=== PATIENT | male | born 1985 | race Caucasian/White ===

== ENCOUNTER 2021-06-05 14:50 | Emergency (ER) | payer OTHER ==
[2021-06-05] MEDS ORDERED: Sodium Chloride 0.9% 10 ML Syringe FLUSH PRN (15:19)
[2021-06-05] MEDS ORDERED: fentaNYL 100 MCG/2 ML SDV IVPUSH ONE ×2 (15:19→16:24)
[2021-06-05] MEDS ORDERED: Ondansetron 4 MG/2 ML SDV IVPUSH ONE (15:19)
[2021-06-05] MEDS ORDERED: Sodium Chloride 0.9% 1,000 ML IV ONE (15:19)
--- NOTE | 2021-06-05 15:24 | EDM.PDOC ---
ED HPI GENERAL MEDICAL PROBLEM - General Chief Complaint: Abdominal Pain Stated Complaint: STOMACH PAIN Time Seen by Provider: 06/05/21 15:12 Source of Information: Reports: Patient - History of Present Illness INITIAL COMMENTS - FREE TEXT/NARRATIVE: Dennys is a 35 y/o male who comes to the ER with complaints of abdominal pain. He felt fine this AM when he got up, then about 1000 he started to have widespread abdominal pain along with nausea and vomiting. No diarrhea. He felt fine up until then. No meds taken. Rates the pain sharp and 9/10. Abdominal Pain Score (Numeric/FACES): 9 - Related Data Allergies Allergy/AdvReac Type Severity Reaction Status Date / Time No Known Allergies Allergy Verified 06/05/21 15:34 Review of Systems - Review of Systems Review Of Systems: See Below Constitutional: Reports: Chills Eyes: Reports: No Symptoms Ears: Reports: No Symptoms Nose: Reports: No Symptoms Mouth/Throat: Reports: No Symptoms Respiratory: Reports: No Symptoms Cardiovascular: Reports: No Symptoms GI/Abdominal: Reports: Abdominal Pain, Decreased Appetite, Nausea, Vomiting Genitourinary: Reports: No Symptoms Musculoskeletal: Reports: No Symptoms Skin: Reports: No Symptoms Neurological: Reports: No Symptoms Psychiatric: Reports: No Symptoms ED EXAM, GENERAL - Physical Exam Exam: See Below General Appearance: Alert, WD/WN, No Apparent Distress (Adult male, appears to not feel well.) Eye Exam: Bilateral Eye: PERRL Ears: Normal External Exam, Hearing Grossly Normal Nose: Normal Inspection Throat/Mouth: Normal Inspection, Normal Lips Head: Atraumatic, Normocephalic Neck: Supple Respiratory/Chest: No Respiratory Distress, Lungs Clear Cardiovascular: Regular Rate, Rhythm, No Murmur GI/Abdominal: Normal Bowel Sounds, No Distention, Tender (Diffuse) (Male) Exam: Deferred Rectal (Males) Exam: Deferred Back Exam: Normal Inspection, Full Range of Motion Extremities: Normal Inspection, Normal Range of Motion, No Pedal Edema, Normal Capillary Refill Neurological: Alert, Oriented, CN II-XII Intact, No Motor/Sensory Deficits Psychiatric: Normal Affect, Normal Mood Skin Exam: Warm, Dry, Intact, Normal Color Lymphatic: No Adenopathy Course - Vital Signs Text/Narrative:: 1512 The patient was seen by the [facility]. Labs ordered. He was given a liter of NS, Fentanyl 100mcg IVP, and Zofran 4mg IVP. 1600 Labs reviewed. Note WBC=15.3, Neuts=88.9%, Potassium=3.4, Qmqfezb=608, Mg=1.6, T Bili=2.6, Amylase=17, Lipase=62. CT ordered. 1620 Pain 5/[address] pending. Fentanyl 100mcg IVP repeated. 1750 Noted +appendicitis on the CT. Patient feeling better and asking to eat. [facility] advised he stay NPO[facility]amo, General Surgeon promotions assistant, accepted the patient for transfer. Will given Invaz 1gm IVP prior to departure and also obtain COVID test. He was given directions on how to get to [facility] and he left the ER via POV with his . He was stable on departure. Last Recorded V/S: Last Vital Signs Temp 37 C 06/05/21 15:13 Pulse 78 06/05/21 16:49 Resp 16 06/05/21 16:49 BP 120/65 06/05/21 16:49 Pulse Ox 99 06/05/21 16:49 - Orders/Labs/Meds Orders: Active Orders 24 hr Category Date Time Status CORONAVIRUS COVID-19 RAPID [MOLEC] Stat Lab 06/05/21 17:59 Ordered CULTURE BLOOD [BC] Stat Lab 06/05/21 15:40 Received CULTURE BLOOD [BC] Stat Lab 06/05/21 15:50 Received Sodium Chloride 0.9% [Saline Flush] Med 06/05/21 15:19 Active 10 ml FLUSH ASDIRECTED PRN Blood Culture x2 Reflex Set [OM.PC] Stat Oth 06/05/21 15:19 Ordered Saline Lock Insert [OM.PC] Stat Oth 06/05/21 15:19 Ordered Medication Orders Sodium Chloride (Sodium Chloride 0.9% 10 Ml Syringe) 10 ml FLUSH ASDIRECTED PRN PRN Reason: Keep Vein Open Labs: Laboratory Tests 06/05/21 06/05/21 06/05/21 Range/Units 15:24 15:40 15:40 WBC 15.3 H (4.0-10.0) x10^3/uL RBC 4.22 L (4.5-6.0) x10^6/uL Hgb 13.5 L (14.0-18.0) g/dL Hct 38.5 L (40.0-52.0) % MCV 91.2 (78.0-93.0) fL MCH 32.0 (26.0-32.0) pg MCHC 35.1 (32.0-36.0) g/dL RDW Coeff of Mellissa 12.0 (10.0-15.0) % Plt Count 201 (130-400) x10^3/uL Neut % (Auto) 88.9 H (50.0-80.0) % Lymph % (Auto) 2.7 L (25.0-50.0) % [place] % (Auto) 8.2 (2.0-11.0) % Eos % (Auto) 0.1 (0.0-4.0) % Baso % (Auto) 0.1 L (0.2-1.2) % Sodium 138 (136-145) mmol/L Potassium 3.4 L (3.5-5.1) mmol/L Chloride 101 (98-107) mmol/L Carbon Dioxide 23 (21-32) mmol/L Anion Gap 17.4 H (5-15) mmol/L BUN 13 (7-18) mg/dL Creatinine 0.8 (0.70-1.30) mg/dL Est Cr Clr Drug Dosing 134.34 mL/min Estimated GFR (MDRD) > 60 Glucose 129 H (70-99) mg/dL Lactic Acid (0.4-2.0) mmol/L Calcium 8.8 (8.5-10.1) mg/dL Corrected Calcium 8.6 (8.5-10.1) mg/dL Magnesium 1.6 L (1.8-2.4) mg/dL Total Bilirubin 2.6 H (0.2-1.0) mg/dL AST 13 L (15-37) U/L ALT 17 (16-63) U/L Alkaline Phosphatase 62 (46-116) U/L C-Reactive Protein 0.8 (<=0.9) mg/dL Total Protein 7.4 (6.4-8.2) g/dL Albumin 4.3 (3.4-5.0) g/dL Globulin 3.1 Albumin/Globulin Ratio 1.39 Amylase 17 L (25-115) U/L Lipase 62 L (73-393) U/L Urine Color Dark yellow H (YELLOW) Urine Appearance Clear (CLEAR) Urine pH >=9.0 H (5.0-8.0) Ur Specific [place] 1.020 Urine Protein 30 H (NEGATIVE) mg/dL Urine Glucose (UA) Negative (NEGATIVE) mg/dL Urine Ketones >=160 H (NEGATIVE) mg/dL Urine Occult Blood Trace-lysed H (NEGATIVE) Urine Nitrite Negative (NEGATIVE) Urine Bilirubin Negative (NEGATIVE) Urine Urobilinogen 0.2 (0.2) EU/dL Ur Leukocyte Esterase Negative (NEGATIVE) U Hyaline Cast (Auto) Rare Urine RBC 5-10 H (NOT SEEN) /HPF Urine WBC 0-5 (NOT SEEN) /HPF Ur Squamous Epith Cells Rare (NOT SEEN) /HPF Urine Bacteria Not seen (NOT SEEN) /HPF Urine Mucus Moderate H (NOT SEEN) /LPF 06/05/21 Range/Units 15:40 WBC (4.0-10.0) x10^3/uL RBC (4.5-6.0) x10^6/uL Hgb (14.0-18.0) g/dL Hct (40.0-52.0) % MCV (78.0-93.0) fL MCH (26.0-32.0) pg MCHC (32.0-36.0) g/dL RDW Coeff of Mellissa (10.0-15.0) % Plt Count (130-400) x10^3/uL Neut % (Auto) (50.0-80.0) % Lymph % (Auto) (25.0-50.0) % [place] % (Auto) (2.0-11.0) % Eos % (Auto) (0.0-4.0) % Baso % (Auto) (0.2-1.2) % Sodium (136-145) mmol/L Potassium (3.5-5.1) mmol/L Chloride (98-107) mmol/L Carbon Dioxide (21-32) mmol/L Anion Gap (5-15) mmol/L BUN (7-18) mg/dL Creatinine (0.70-1.30) mg/dL Est Cr Clr Drug Dosing mL/min Estimated GFR (MDRD) Glucose (70-99) mg/dL Lactic Acid 1.3 (0.4-2.0) mmol/L Calcium (8.5-10.1) mg/dL Corrected Calcium (8.5-10.1) mg/dL Magnesium (1.8-2.4) mg/dL Total Bilirubin (0.2-1.0) mg/dL AST (15-37) U/L ALT (16-63) U/L Alkaline Phosphatase (46-116) U/L C-Reactive Protein (<=0.9) mg/dL Total Protein (6.4-8.2) g/dL Albumin (3.4-5.0) g/dL Globulin Albumin/Globulin Ratio Amylase (25-115) U/L Lipase (73-393) U/L Urine Color (YELLOW) Urine Appearance (CLEAR) Urine pH (5.0-8.0) Ur Specific [place] Urine Protein (NEGATIVE) mg/dL Urine Glucose (UA) (NEGATIVE) mg/dL Urine Ketones (NEGATIVE) mg/dL Urine Occult Blood (NEGATIVE) Urine Nitrite (NEGATIVE) Urine Bilirubin (NEGATIVE) Urine Urobilinogen (0.2) EU/dL Ur Leukocyte Esterase (NEGATIVE) U Hyaline Cast (Auto) Urine RBC (NOT SEEN) /HPF Urine WBC (NOT SEEN) /HPF Ur Squamous Epith Cells (NOT SEEN) /HPF Urine Bacteria (NOT SEEN) /HPF Urine Mucus (NOT SEEN) /LPF Meds: Medications Generic Name Dose Route Start Last Admin Trade Name Frekarl PRN Reason Stop Dose Admin Sodium Chloride 10 ml 06/05/21 15:19 Sodium Chloride 0.9% 10 Ml Syringe FLUSH ASDIRECTED PRN Keep Vein Open Discontinued Medications Generic Name Dose Route Start Last Admin Trade Name Freq PRN Reason Stop Dose Admin Ertapenem 1 gm 06/05/21 17:58 Ertapenem 1 Gm Vial IVPUSH 06/05/21 17:59 STAT ONE Fentanyl 100 mcg 06/05/21 15:19 06/05/21 15:41 Fentanyl 100 Mcg/2 Ml Sdv IVPUSH 06/05/21 15:20 100 mcg ONETIME ONE Administration Fentanyl 100 mcg 06/05/21 16:24 06/05/21 16:41 Fentanyl 100 Mcg/2 Ml Sdv IVPUSH 06/05/21 16:25 100 mcg ONETIME ONE Administration Sodium Chloride 1,000 mls @ 999 mls/hr 06/05/21 15:19 06/05/21 15:35 Normal Saline IV 06/05/21 16:19 999 mls/hr ONETIME ONE Administration Iopamidol 100 ml 06/05/21 17:43 Iopamidol 612 Mg/Ml 100 Ml Bottle IVPUSH 06/05/21 17:44 ONETIME ONE Ondansetron HCl 4 mg 06/05/21 15:19 06/05/21 15:38 Ondansetron 4 Mg/2 Ml Sdv IVPUSH 06/05/21 15:20 4 mg ONETIME ONE Administration - Radiology Interpretation Free Text/Narrative:: CT Abd/Pelvis W=acute appendicitis (See report) Departure - Departure Time of Disposition: 18:02 Disposition: DC/Tfer to Acute Hospital 02 Condition: Good Clinical Impression: Appendicitis Qualifiers: Appendicitis type: acute appendicitis Acute appendicitis type: with generalized peritonitis Appendicitis gangrene presence: unspecified whether gangrene present Appendicitis perforation presence: unspecified whether perforation present Appendicitis abscess presence: unspecified whether abscess present Qualified Code(s): K35.20 - Acute appendicitis with generalized peritonitis, without abscess - Discharge Information Referrals: Eldon Villegas, [employer] [Primary Care Provider] - Forms: ED Department Discharge, Interfacility Transfer [facility] Sepsis Event Note (ED) - Evaluation Sepsis Screening Result: No Definite Risk - Focused Exam Vital Signs: Vital Signs Temp Pulse Resp BP Pulse Ox 06/05/21 16:49 78 16 120/65 99 06/05/21 15:13 37 C 53 L 16 107/53 L 100 - My Orders Last 24 Hours: My Active Orders 06/05/21 15:19 Sodium Chloride 0.9% [Saline Flush] 10 ml FLUSH ASDIRECTED PRN Blood Culture x2 Reflex Set [OM.PC] Stat Saline Lock Insert [OM.PC] Stat 06/05/21 15:40 CULTURE BLOOD [BC] Stat 06/05/21 15:50 CULTURE BLOOD [BC] Stat 06/05/21 17:59 CORONAVIRUS COVID-19 RAPID [MOLEC] Stat - Assessment/Plan Last 24 Hours: My Active Orders 06/05/21 15:19 Sodium Chloride 0.9% [Saline Flush] 10 ml FLUSH ASDIRECTED PRN Blood Culture x2 Reflex Set [OM.PC] Stat Saline Lock Insert [OM.PC] Stat 06/05/21 15:40 CULTURE BLOOD [BC] Stat 06/05/21 15:50 CULTURE BLOOD [BC] Stat 06/05/21 17:59 CORONAVIRUS COVID-19 RAPID [MOLEC] Stat Assessment:: 1)Acute Appendicitis Plan: -Transfer to [facility] via POV to Dr Alamo
[2021-06-05 16:15] LABS: CHLORIDE,CL 101 mmol/L (98-107); SODIUM,NA 138 mmol/L (136-145)
[2021-06-05 16:16] LABS: ANION GAP 17.4 mmol/L (5-15)
--- NOTE | 2021-06-05 17:38 | CT ---
[id number] CT/CT Abdomen Pelvis W IV EXAM: CT Abdomen Pelvis W IV CLINICAL DATA: ABDOMINAL PAIN. COMPARISON STUDY: None. FINDINGS: Lung bases are clear. Liver, spleen, gallbladder, pancreas, adrenal glands, and kidneys are unremarkable. The appendix is dilated measuring up to 1.0 cm. There is an appendicolith within the midportion of the appendix. There is periappendiceal fat stranding. Trace periappendiceal free fluid. No fluid collection. No lymphadenopathy, free fluid, or pneumoperitoneum. Scattered changes of spondylosis the spine. No fracture or osseous lesion. IMPRESSION: 1. Acute uncomplicated appendicitis. Oonfre Choi DO 06/05/21 1537 Thank you for allowing us to participate in the care of your patient.
[2021-06-05] MEDS ORDERED: Iopamidol 612 MG/ML 100 ML Bottle IVPUSH ONE (17:43)
[2021-06-05] MEDS ORDERED: Ertapenem 1 GM Vial IVPUSH ONE (17:58)
[2021-06-05] MEDS ORDERED: Morphine 4 MG/ML Syringe IVPUSH ONE (18:08)
== END 2021-06-05 18:30 | disposition short-term general hospital (02) ==
LOC: VM.ED 14:50
DX: K35.20 Acute appendicitis with generalized peritonitis, without abscess (principal)
CPT/HCPCS: 36415; 74177; 80053; 81001; 82150; 83605; 83690; 83735; 85025; 86140; 87040; 87635; 96374; 96375; 96376; 99284; J1335; J2270; J2405; J3010; J7030; U0002